=== PATIENT | female | born 2000 | race Caucasian/White ===

== ENCOUNTER 2023-03-28 06:05 | Emergency (ER) | payer OTHER ==
[~2023-03-28] VITALS: Ht 154.9 cm; Wt 86.6 kg
[2023-03-28] MEDS: IBUPROFEN 800 MG TAB PO ONE (09:11)
[2023-03-28] MEDS: ONDANSETRON 4MG ORAL DISINTEGRATING TAB PO ONE (09:11)
[2023-03-28 10:12] VITALS: BP 140/90; TEMP 98.4; O2SAT 99
[2023-03-28] MEDS ORDERED: ONDA4TAB6 PO (10:13)
[2023-03-28] MEDS ORDERED: KETO10TAB PO (10:13)
== END 2023-03-28 10:28 | disposition home or self-care (01) ==
LOC: M ED 06:05
DX: G43.909 Migraine, unspecified, not intractable, without status migrainosus (principal)

== ENCOUNTER → 2023-12-03 | Outpatient (CLI) | payer OTHER, BC ==
[~2023-12-03] MED LIST: KETO10TAB PO; ONDA-282 PO
== END ==
LOC: M PLAIMG 07:37
PROVIDERS: ATTEND Nurse Practitioner Family
DX: R55 Syncope and collapse (principal); R00.2 Palpitations; I27.20 Pulmonary hypertension, unspecified; I08.1 Rheumatic disorders of both mitral and tricuspid valves